=== PATIENT | female | born 1970 | race Hispanic/Latino ===

== ENCOUNTER 2024-01-12 06:46 | Observation (INO) | payer BC ==
[2024-01-11 13:18] LABS: BASOPHILS # (AUTO) 0.04 K/uL (0.00-0.20); BASOPHILS % (AUTO) 0.6 % (0.0-5.0); EOSINOPHILS # (AUTO) 0.13 K/uL (0.00-0.70); EOSINOPHILS % (AUTO) 1.9 % (0.0-8.0); HEMATOCRIT 41.9 % (36-48); IMMATURE GRANULOCYTE ABSOLUTE 0.02 K/uL (0-1); LYMPHOCYTES # (AUTO) 3.3 K/uL (1.0-4.8); LYMPHOCYTES % (AUTO) 48.1 % (21.0-51.0); MEAN CORPUSCULAR HEMOGLOBIN 30.2 pg (27.0-33.0); MEAN CORPUSCULAR HGB CONC 33.4 g/dL (32.0-36.0); MEAN CORPUSCULAR VOLUME 90.3 fL (79-99); MONOCYTES # (AUTO) 0.6 K/uL (0.1-1.0); NEUTROPHILS # (AUTO) 2.8 K/uL (1.8-7.7); NEUTROPHILS % (AUTO) 41.1 % (40.0-77.0); PLATELET COUNT (AUTO) 295 K/uL (130-400); RED BLOOD CELL COUNT(AUTO) 4.64 MIL/uL (4.00-5.50); RED CELL DISTRIBUTION WIDTH 12.8 % (11.0-15.5); WHITE BLOOD COUNT (AUTO) 6.9 K/uL (4.8-10.8)
[2024-01-11 13:29] LABS: ALBUMIN 3.5 g/dL (3.5-5.0); CREATININE 0.5 mg/dL (0.5-1.0)
[2024-01-11 13:30] LABS: INR <= 0.93 (0.85-1.15); PROTHROMBIN TIME 10.6 SEC (9.6-11.6)
[2024-01-11 13:32] LABS: PARTIAL THROMBOPLASTIN TIME 25.3 SEC (26.3-35.5)
[2024-01-11 13:57] VITALS: BP 119/78; PULSE 68; RESP 19
[2024-01-11 14:16] LABS: APPEARANCE,URINE CLEAR (CLEAR); BILIRUBIN,URINE NEGATIVE (NEGATIVE); COLOR,URINE COLORLESS (YELLOW); GLUCOSE, URINE (UA) NEGATIVE (NEGATIVE); KETONES,URINE NEGATIVE (NEGATIVE); LEUKOCYTE ESTERASE ,URINE NEGATIVE Leu/uL (NEGATIVE); NITRATE,URINE NEGATIVE (NEGATIVE); OCCULT BLOOD,URINE SMALL (NEGATIVE); PH,URINE 5.5 (5.0-8.0); PROTEIN,URINE NEGATIVE (NEGATIVE); UROBILINOGEN,URINE 0.2 mg/dL (0.2-1.0)
[2024-01-11 14:35] LABS: ADD UA MICROSCOPIC YES
[2024-01-11 14:37] LABS: BACTERIA,URINE RARE /HPF (None Seen); MUCUS,URINE RARE LPF (None Seen); RBC,URINE 0-1 /HPF (0-1); SQUAMOUS EPITHELIAL CELL,UR FEW /HPF (0-2)
[~2024-01-12] VITALS: Ht 170.2 cm; Wt 103.9 kg
[2024-01-12] VITALS (30 sets, daily range): BP systolic 95–127; BP diastolic 50–75; PULSE 50–92; RESP 12–20; O2SAT 96–99
[~2024-01-12 06:46] MED LIST: CHOL200074 PO; METO-391 PO; TYLENOL ARTHRITIS PO
[2024-01-12] MEDS: CEFAZOLIN SODIUM 2 GM VIAL ONE (07:38)
[2024-01-12] MEDS: LACTATED RINGERS 1000ML 1,000 ML IV ONE (07:39)
[2024-01-12] MEDS: ACETAMINOPHEN 1,000 MG/100 ML VIAL IV ONE (08:38)
[2024-01-12] MEDS: FAMOTIDINE 20MG VIAL IV ONE (08:38)
[2024-01-12] MEDS ORDERED: ROPIVACAINE 0.5% 5MG/ML 30ML ONE (08:40)
[2024-01-12] MEDS ORDERED: KETAMINE 50MG/ML SYRINGE 50 MG/ML DISP.SYRIN ONE (08:40)
[2024-01-12] MEDS ORDERED: LIDOCAINE PF 100MG/5ML (2%) SYRINGE 5ML ONE (08:41)
[2024-01-12] MEDS ORDERED: FENTANYL CITRATE PF 50 MCG/1 ML 2ML VIAL ONE (08:42)
[2024-01-12] MEDS ORDERED: PROPOFOL 10 MG/ML 20ML VIAL IV ONE (08:42)
[2024-01-12] MEDS ORDERED: ROCURONIUM BROMIDE 10MG/1ML 5ML VL ONE ×2 (08:42→09:29)
[2024-01-12] MEDS ORDERED: ONDANSETRON 4MG INJ ONE (09:02)
[2024-01-12] MEDS ORDERED: DEXAMETHASONE SOD PHOSPHATE 10MG/ML 1ML VIAL ONE (09:02)
[2024-01-12] MEDS ORDERED: TRANEXAMIC ACID 1000MG/10ML ONE ×2 (09:07→11:14)
[2024-01-12] MEDS: CEFAZOLIN SODIUM 2 GM VIAL IVPB ONE ×2 (09:25)
[2024-01-12] MEDS ORDERED: NEOSTIGMINE METHYLSULFATE 1MG/ML IV ONE (11:09)
[2024-01-12] MEDS ORDERED: GLYCOPYRROLATE 0.2 MG/ML 5 ML VIAL ONE (11:09)
[2024-01-12] MEDS ORDERED: ONDANSETRON 4MG INJ IVP PRN (12:00)
[2024-01-12] MEDS ORDERED: POTASSIUM CHLORIDE 20MEQ/100ML 100 ML IV PRN (12:00)
[2024-01-12] MEDS ORDERED: CALCIUM CARB 500MG PO PRN (12:00)
[2024-01-12] MEDS ORDERED: KCL 20 MEQ ERTAB PO PRN (12:00)
[2024-01-12] MEDS ORDERED: POTASSIUM CHLORIDE 10% ELIXIR 20 MEQ/15 ML UDCUP PO PRN (12:00)
[2024-01-12] MEDS ORDERED: DiphenhydrAMINE HCL 50 MG/ML VIAL IVP PRN (12:00)
[2024-01-12] MEDS ORDERED: FERROUS FUMARATE 324 MG TABLET PO PRN (12:00)
[2024-01-12] MEDS: KETOROLAC 15MG/ML VIAL (15MG/ML) IV SCH (12:49)
[2024-01-12] MEDS: ONDANSETRON 4MG INJ ONE (12:49)
[2024-01-12] MEDS: MEPERIDINE-PF 25 MG/ML SYG ONE ×2 (12:50→13:15)
[2024-01-12] MEDS: KETOROLAC 15MG/ML VIAL (15MG/ML) ONE (12:50)
[2024-01-12] MEDS: GABAPENTIN 100 MG CAPSULE PO SCH (14:00)
[2024-01-12] MEDS: 0.9%NACL 1000ML 1,000 ML IV SCH (14:18)
[2024-01-12] MEDS: HYDROCODONE/ACETAMINOPHEN 5/325 MG TAB PO PRN (14:24)
[2024-01-12] MEDS: CEFAZOLIN SODIUM 2 GM VIAL IVPB SCH (16:18)
[2024-01-12] MEDS: (Cholecalciferol (Vitamin D3) (Vitamin D3) 50 MCG) PO SCH (20:00)
[2024-01-12] MEDS: METOPROLOL SUCCINATE 50 MG TAB.SR.24H PO SCH (20:00)
[2024-01-12] MEDS: DOCUSATE SODIUM 100 MG CAP PO SCH (20:01)
[2024-01-13 04:00] VITALS: BP 101/60; PULSE 69; RESP 18
[2024-01-13 04:46] LABS: HEMATOCRIT 31.7 % (36-48); MEAN CORPUSCULAR HEMOGLOBIN 31.1 pg (27.0-33.0); MEAN CORPUSCULAR HGB CONC 34.4 g/dL (32.0-36.0); MEAN CORPUSCULAR VOLUME 90.3 fL (79-99); RED BLOOD CELL COUNT(AUTO) 3.51 MIL/uL (4.00-5.50); RED CELL DISTRIBUTION WIDTH 12.8 % (11.0-15.5); WHITE BLOOD COUNT (AUTO) 9.3 K/uL (4.8-10.8)
[2024-01-13 05:09] LABS: CREATININE 0.5 mg/dL (0.5-1.0)
[2024-01-13 07:00] VITALS: BP 122/67; PULSE 94; RESP 20
[2024-01-13] MEDS: TRAMADOL HCL 50 MG TABLET PO PRN (09:06)
[2024-01-13] MEDS: POLYETHYLENE GLYCOL 3350 17 GM POWD.PACK PO SCH (09:07)
[2024-01-13] MEDS: ASPIRIN 325MG EC TAB PO SCH (09:07)
[2024-01-13 11:44] VITALS: BP 107/66; PULSE 96; RESP 20
[2024-01-13] MEDS: CYCLOBENZAPRINE HCL 10 MG TABLET PO PRN (14:08)
[2024-01-13] MEDS: KETOROLAC 15MG/ML VIAL (15MG/ML) IV PRN (14:11)
[2024-01-13 15:05] VITALS: BP 113/63; PULSE 95; RESP 20
[2024-01-13 20:00] VITALS: BP 118/51; PULSE 102; RESP 20
[2024-01-14] VITALS (7 sets, daily range): BP systolic 100–109; BP diastolic 46–72; PULSE 85–111; RESP 14–20; O2SAT 98
[2024-01-14] MEDS ORDERED: CYCL-309 PO (17:45)
[2024-01-14] MEDS ORDERED: ASPI-891 PO (17:45)
[2024-01-14] MEDS ORDERED: DOCU-116 PO (17:45)
[2024-01-14] MEDS ORDERED: HYDR-4060 PO (17:45)
[2024-01-15] VITALS: BP 97/45; PULSE 89; RESP 18
[2024-01-15 04:00] VITALS: BP 99/61; PULSE 85; RESP 19
[2024-01-15 07:37] VITALS: BP 121/57; PULSE 81; RESP 18
[2024-01-15 08:00] VITALS: O2SAT 99
[2024-01-15 11:32] VITALS: BP 116/53; PULSE 79; RESP 18
[2024-01-15] MEDS ORDERED: BISACODYL 10 MG SUPP.RECT RC PRN (12:00)
== END 2024-01-15 14:57 | disposition home or self-care (01) ==
LOC: DAH 06:46 → DAHIP 06:47 → 4CH 13:50
PROVIDERS: ADMIT Student in an Organized Health Care Education/Training Program; ATTEND Student in an Organized Health Care Education/Training Program
DX: M16.11 Unilateral primary osteoarthritis, right hip (principal); G89.18 Other acute postprocedural pain; D62 Acute posthemorrhagic anemia; M24.551 Contracture, right hip; I10 Essential (primary) hypertension; E66.9 Obesity, unspecified; Z68.35 Body mass index [BMI] 35.0-35.9, adult; Z79.899 Other long term (current) drug therapy
CPT/HCPCS: 82040; 80048 ×2; 84703; 85025; 85610; 85730; 87088; 84134; 86140; 81001; 36415 ×2; 87641; 27130; 96365; 96375; 64447; 73503; 73521; 97161; 97116 ×6; 97530 ×5; 96376 ×3; 96366; 85027; G0378 ×70; A4663; J7120 ×2; C1776 ×3; J3490 ×8; J3010; J1100; J2001; J2704; J2405 ×2; J2710; J2175 ×2; J2795; J1885 ×6; J0690 ×4; A4649 ×2; G0168; A6255; A5120; A4215; A4223; A4222; A4221